=== PATIENT | male | born 1950 | race Caucasian/White ===

== ENCOUNTER → 2021-01-23 11:38 | Outpatient (CLI) | payer MEDICARE, SELFPAY ==
[2021-01-23 15:11] LABS: Prostate Specific Antigen 0.099 ng/mL (0.10-4.00)
== END ==
PROVIDERS: Referring Provider Specialist; Visit Provider Specialist
DX: C61 Malignant neoplasm of prostate (principal); C77.5 Secondary and unspecified malignant neoplasm of intrapelvic lymph nodes; N28.89 Other specified disorders of kidney and ureter; N52.9 Male erectile dysfunction, unspecified
CPT/HCPCS: 36415; 81002; 84153; 96402; 99215; J9217

== ENCOUNTER → 2021-04-24 10:13 | Outpatient (CLI) | payer MEDICARE, SELFPAY ==
[2021-04-24 11:32] LABS: Prostate Specific Antigen 0.093 ng/mL (0.10-4.00)
== END ==
PROVIDERS: Referring Provider Specialist; Visit Provider Specialist
DX: C61 Malignant neoplasm of prostate (principal); C77.5 Secondary and unspecified malignant neoplasm of intrapelvic lymph nodes; N28.89 Other specified disorders of kidney and ureter; N52.9 Male erectile dysfunction, unspecified
CPT/HCPCS: 36415; 51798; 81002; 84153; 99215